=== PATIENT | male | born 1970 | race Caucasian/White ===

== ENCOUNTER → 2020-09-25 | Outpatient (CLI) | payer OTHER ==
--- NOTE | 2020-09-25 15:42 | RAD ---
EXAMINATION: CT LOWER RIGHT EXTREMITY WITHOUT CONTRAST, 09/25/2020 1:47 PM CLINICAL INDICATION: Fell 2 days ago, concern for tibial plateau fracture COMPARISON: None TECHNIQUE: Helical CT imaging performed of the right lower extremity without the use of intravenous c ontrast. Sagittal and coronal reformats were obtained. One or more of the following individualized dose reduction techniques were utilized for this examinat ion: 1. Automated exposure control 2. Adjustment of the mA and/or kV according to patient size 3. Use of iterative reconstruction technique. FINDINGS: No tibial plateau or distal femur fracture. There is fragmentation of a small superior jeter llar pole osteophyte, age indeterminate. The patella is otherwise intact. Fibula is intact. There is fragmentation of the tibial tubercle. Mild to moderate medial and patellofemoral compartment narrowin g. Mild lateral compartment narrowing. Small tricompartment osteophytes. There is a small joint effus ion. Mild prepatellar edema. Small Thakur cyst. There are vascular calcifications. Multiple varicose v eins. IMPRESSION: 1. No acute fracture fracture. 2. Sequela of [place]-Schlatter's disease with chronic augmentation of the tibial tubercle and mild th ickening of the distal patellar tendon. Fragmentation of a superior patellar pole osteophyte is age i ndeterminate. 3. Small joint effusion. Mild soft tissue swelling, greatest in the prepatellar region. Electronically signed by: Kristin Colin MD (09/25/2020 3:40 PM) [id number]
== END ==
LOC: CT 13:37
PROVIDERS: ATTEND Family Medicine
DX: M25.461 Effusion, right knee (principal)
CPT/HCPCS: 73700

== ENCOUNTER 2021-05-07 19:48 | Emergency (ER) | payer OTHER ==
[~2021-05-07] VITALS: Ht 175.3 cm; Wt 130.0 kg
--- NOTE | 2021-05-07 20:19 | PHYS DOC ---
Adult General Chief Complaint Chief Complaint: DENTAL PROBLEM HPI HPI Patient is a 50-year-old male who presents with dental pain and swelling. States he saw a dentist over a week ago for a bad tooth and was told he had an infection and was started on antibiotics and could not have the extraction done till the infection was gone. States that he has been on Augmentin and doxycycline. States that since then the swelling and pain have increased to include his neck and jaw, 7 out of 10, dull and achy in nature, and relatively constant. States has been taken Tylenol and ibuprofen at home with minimal relief. States he thinks he has had a fever as he has been hot but did not take his temperature. Denies any pain or trouble swallowing, chest pain, shortness of breath, abdominal pain, nausea, vomiting. Review of Systems Review of Systems Review of systems otherwise unremarkable except noted in HPI Physical Exam Physical Exam Constitutional: Well developed, well nourished, no acute distress, non-toxic appearance. [] HENT: Normocephalic, atraumatic, bilateral external ears normal, patient with significant swelling and tenderness on left side of face with extension into anterior lateral portion of the left neck. oropharynx moist, no oral exudates, nose normal. [] Eyes: conjunctiva normal, no discharge. [] Neck: Normal range of motion, no tenderness, supple, no stridor, no lymphadenopathy. [] Neurologic: Alert and oriented X 3, no focal deficits noted. [] Psychologic: Affect normal, judgement normal, mood normal. [] EKG EKG [] Radiology/Procedures Radiology/Procedures [] Heart Score C/O Chest Pain: No Risk Factors: Risk Factors: DM, Current or recent (<one month) smoker, HTN, HLP, family history of CAD, obesity. Risk Scores: Risk Factors: DM, Current or recent (<one month) smoker, HTN, HLP, family history of CAD, obesity. Course & Med Decision Making Course & Med Decision Making Patient is a 50-year-old male who presents with dental pain Vital signs notable for tachycardia and borderline fever. Physical exam noted above. Patient placed on the monitor with IV access established and IV fluid begun. Given SIRS criteria and probable infection, blood cultures obtained and patient started on antibiotics. Given pain medicine as well. Laboratory analysis notable for neutrophilic leukocytosis and elevated creatinine. CT notable for extensive cellulitis in the face and neck with some lymphadenopathy Discussed all findings with patient and recommended admission for continued evaluation and treatment. Family stated that they get most their care at [facility] and would like to be transferred there if possible. Discussed patient with [facility] transfer team who accepted the patient for continued evaluation and treatment of his sepsis secondary to facial and neck cellulitis. [] Dragon Disclaimer Dragon Disclaimer This electronic medical record was generated, in whole or in part, using a voice recognition dictation system. Departure Departure: Impression: Primary Impression: Pain, dental Additional Impressions: Facial cellulitis Cellulitis of neck Disposition: 02 [facility] Admitting Physician: Other Condition: STABLE Referrals: NANCY IBARRA (PCP) Patient Instructions: Dental Pain Problem Qualifiers BETTYE MORAN MD May 07, 2021 20:18
[2021-05-07] MEDS ORDERED: CONTRAST GIVEN. MC PRN (20:45)
[2021-05-07] MEDS ORDERED: IV RINGERS SOLUTION,LACTATED 1,000 ML IV ONE (21:00)
[2021-05-07] MEDS ORDERED: MORPHINE SULFATE 4 MG/ML DISP.SYRIN. IV ONE ×2 (21:00→23:15)
[2021-05-07] MEDS ORDERED: PIPERACILLIN/TAZOBACTAM 4.5 GM in IV NORMAL SALINE 50ML 50 ML IV ONE (21:00)
[2021-05-07] MEDS ORDERED: IOHEXOL 300 MG/ML 75 ML VIAL. IV ONE (21:00)
[2021-05-07] MEDS ORDERED: METOPROLOL TARTRATE 5 MG/5 ML VIAL. IV ONE ×2 (21:00→23:15)
[2021-05-07] MEDS ORDERED: PIPERACILLIN/TAZOBACTAM 4.5 GM VIAL IV ONE (21:10)
[2021-05-07] MEDS ORDERED: IV NORMAL SALINE 50ML 50 ML ONE (21:10)
[2021-05-07 21:12] LABS: BASO % 0 % (0-3); EOS % 0 % (0-3); HEMOGLOBIN 14.2 g/dL (13.0-17.5); LYMPH # 0.8 x10^3/uL (1.0-4.8); LYMPH % 5 % (24-48); MEAN CORPUSCULAR HEMOGLOBIN 30 pg (25-35); MEAN CORPUSCULAR HGB CONC 33 g/dL (31-37); MEAN CORPUSCULAR VOLUME 91 fL (79-100); MONO # 1.4 x10^3/uL (0.0-1.1); MONO % 9 % (0-9); NEUT # 14.4 x10^3uL (1.8-7.7); NEUT % 86 % (31-73); PLATELET COUNT 179 x10^3/uL (140-400); RED BLOOD COUNT 4.72 x10^6/uL (4.30-5.70); RED CELL DISTRIBUTION WIDTH 14.4 % (11.5-14.5); WHITE BLOOD COUNT 16.6 x10^3/uL (4.0-11.0)
[2021-05-07 21:22] LABS: CREATININE 2.1 mg/dL (0.7-1.3); GFR 33.6; POTASSIUM 3.7 mmol/L (3.5-5.1)
--- NOTE | 2021-05-07 21:29 | RAD ---
Exam: CT neck with contrast INDICATION: Left-sided facial and neck mass TECHNIQUE: Sequential axial images through the neck obtained following the administration of 75 mL of Omni 300 IV contrast. Sagittal and coronal reformatted images were reconstructed from the axial data and reviewed. Exposure: One or more of the following in the visualized dose reduction techniques were utilized for this examination: 1. Automated exposure control 2. Adjustment of the MA and/or KV according to patient size 3. Use of iterative of reconstructive technique Comparisons: None FINDINGS: Visualized intracranial structures are unremarkable. Visualized portions of paranasal sinuses and mastoid air cells are well-pneumatized. Nasopharynx, oropharynx, hypopharynx and larynx are unremarkable. Thyroid and salivary glands are unremarkable. There is extensive skin thickening and underlying subcutaneous stranding noted overlying the mandible greater on the left extending into the submandibular region and lower neck. No discrete fluid collec tion is identified. Extensive bilateral cervical lymphadenopathy. Visualized lung apices are clear. No suspicious osseous lesions or acute fractures. IMPRESSION: 1. Extensive skin thickening and underlying stranding the subcutaneous fat overlying the right [place] ble and extending lower into the neck. No discrete fluid collection is identified. Findings could rel ate to cellulitis. Correlate with physical exam. 2. Extensive bilateral cervical lymphadenopathy, likely reactive to the above process. Electronically signed by: Margie Srinivasan MD (05/07/2021 9:27 PM) [facility]
[2021-05-07 21:44] LABS: % BANDS 7 % (0-9); % LYMPHS 9 % (24-48); % MONOS 3 % (0-10); % SEGS 81 % (35-66); PLT ESTIMATE ADEQUATE (ADEQUATE)
[2021-05-07 22:43] LABS: CLARITY,URINE CLEAR; COLOR,URINE YELLOW; GLUCOSE,URINE >=1000 mg/dL (NEG)
[2021-05-07 22:44] LABS: BACTERIA,URINE 0 /HPF (0-FEW); BILIRUBIN,URINE NEG (NEG); NITRITE,URINE NEG (NEG); RBC,URINE 0 /HPF (0-2); SQUAMOUS EPITHELIAL CELL,UR OCC /LPF; UROBILINOGEN,URINE 0.2 mg/dL (0.2 mg/dL); WBC,URINE RARE /HPF (0-4)
[2021-05-07] MEDS ORDERED: ACETAMINOPHEN 500 MG TABLET PO ONE ×2 (23:40→23:45)
[2021-05-08] MEDS ORDERED: MORPHINE SULFATE 4 MG/ML DISP.SYRIN. IV ONE
[2021-05-08 00:07] VITALS: BP 137/74
--- NOTE | 2021-05-09 10:41 | EKG ---
[address] [address] Test Date: 2021-05-07 Test Time: 20:23:03 Pat Name: BHAVANA SHABAZZ Department: Room: Gender: M Market Research Manager: RADHAMES : 1970 Requested By: BETTYE MORAN Order Number: [id number] Reading MD: Christopher Villalta Measurements Intervals Rankin Rate: 146 P: 80 CA: 94 QRS: -56 QRSD: 146 T: -23 QT: 312 QTc: 488 Interpretive Statements SINUS TACHYCARDIA ABNORMAL LEFT AXIS DEVIATION NON SPECIFIC INTRAVENTRICULAR BLOCK ABNORMAL ECG Electronically Signed On 05-10-2021 10:02:38 [employer] by Christopher Villalta
== END 2021-05-08 00:17 | disposition short-term general hospital (02) ==
LOC: ER 19:48
DX: L03.211 Cellulitis of face (principal); L03.221 Cellulitis of neck; Z20.822 Contact with and (suspected) exposure to COVID-19
CPT/HCPCS: 36415; 70491; 80048; 81001; 82947; 83605; 85007; 85025; 87040; 87426; 96365; 96375; 96376; 99285; C9803; J2270; J2543; J3490; J7120; Q9967; U0003